=== PATIENT | male | born 1985 ===

== ENCOUNTER 2019-08-01 23:13 | Emergency (ER) | payer OTHER ==
[~2019-08-01] VITALS: Ht 172.7 cm; Wt 97.5 kg
== END 2019-08-02 | disposition home or self-care (01) ==
LOC: ER 23:13
DX: S01.112A Laceration without foreign body of left eyelid and periocular area, initial encounter (principal); W51.XXXA Accidental striking against or bumped into by another person, initial encounter; Y93.89 Activity, other specified; Y92.39 Other specified sports and athletic area as the place of occurrence of the external cause; Y99.8 Other external cause status